=== PATIENT | male | born 1965 | race Hispanic/Latino ===

== ENCOUNTER 2018-03-25 08:46 | Inpatient (IN) | payer OTHER, SELFPAY ==
[~2018-03-25] VITALS: Ht 175.3 cm; Wt 89.4 kg
[2018-03-25] VITALS (7 sets, daily range): BP systolic 143–164; BP diastolic 89–113
[2018-03-25] MEDS ORDERED: TORADOL IV STA (08:58)
[2018-03-25] MEDS ORDERED: TORADOL ONE (09:00)
--- NOTE | 2018-03-25 09:03 | ER.PDOC ---
General Chief Complaint: Skin Rash/Abscess Stated Complaint: INSECT BITE/ pain swelling l elbow TRAVEL OUT OF US: No Time seen by MD: 09:00 Source: patient Exam Limitations: no limitations History of Present Illness Timing/Duration: 1 week Severity: moderate Modifying Factors: improves with immobilization, improves with movement, improves with rest Associated Symptoms: denies symptoms Allergies: Coded Allergies: No Known Allergies (Unverified , 03/25/18) Past Medical History Medical History: no pertinent history, hypertension, thyroid disease Surgical History: neck Social History Smoking: non-smoker Alcohol Use: occassionally Drug Use: none Reviewed Nursing Reviewed: Vital Signs, Abn. Noted Review of Systems All Other Systems: Reviewed and Negative Physical Exam General Appearance: No Apparent Distress EENT: eyes nml inspection Respiratory: chest non-tender CVS: reg rate & rhythm Gastrointestinal: Normal Bowel Sounds Extremities: Inflammation, Other (L ELBOW - POSTERIOR EDEME, ERYTHEMA, JOINT EFFUSION, ROM RESTRICTED) Skin: Other Lymphatic: No Adenopathy Incision and Drainage Incision and Drainage : Blade Size: 11 I & D Procedure: betadine prep, sterile drapes applied, sterile dressing applied, gauze wick placed, probe/break up loculation, irrigated cavity w/saline , culture/gram stain Results/Orders Results/Orders Laboratory Tests Test 03/25/18 09:09 White Blood Count 11.0 10^3/uL (4.5-11.0) Red Blood Count 4.17 10^6/uL (4.50-5.90) Hemoglobin 12.8 g/dL (13.9-16.3) Hematocrit 39.2 % (37.0-53.0) Mean Corpuscular Volume 94.0 fL (78-100) Mean Corpuscular Hemoglobin 30.7 pg (26-34) Mean Corpuscular Hemoglobin Concent 32.7 g/dL (33-37) Red Cell Distribution Width 13.6 % (11.5-14.5) Platelet Count 287 10^3/uL (150-400) Mean Platelet Volume 9.3 fL (7.8-11.0) Neutrophils (%) (Auto) 78.4 % (41.0-85.0) Lymphocytes (%) (Auto) 7.9 % (24.0-44.0) Monocytes (%) (Auto) 12.7 % (5.0-12.0) Neutrophils # (Auto) 8.6 10^3/uL (1.8-7.7) Lymphocytes # (Auto) 0.9 10^3/uL (1.0-4.8) Monocytes # (Auto) 1.4 10^3/uL (0.3-0.8) Absolute Immature Granulocyte (auto 0.03 10^3 u/L (0-2) Eosinophils % 0.5 % (0.0-5.0) Basophils % 0.2 % (0.0-0.2) Basophils # 0.0 10^3/uL (0.0-0.1) Erythrocyte Sedimentation Rate Pending Eosinophil Count 0.1 10^3/uL (0.0-0.2) Sodium Level 139 mmol/L (132-145) Potassium Level 3.5 mmol/L (3.6-5.2) Chloride Level 102.0 mmol/L (96-109) Carbon Dioxide Level 26.1 mmol/L (20.0-32) Anion Gap 14.4 Blood Urea Nitrogen 18 mg/dL (7-18) Creatinine 1.00 mg/dL (0.59-1.40) Estimated GFR () 95.7 (>/=60) BUN/Creatinine Ratio 18.0 Glucose Level 134 mg/dL (70-110) Uric Acid 5.1 mg/dL (3.5-7.2) Calcium Level 8.8 mg/dL (8.4-10.5) Total Bilirubin 0.4 mg/dL (0.2-1.0) Aspartate Amino Transf (AST/SGOT) 21 U/L (0-35) Alanine Aminotransferase (ALT/SGPT) 32 U/L (12-78) Alkaline Phosphatase 99 U/L (50-136) C-Reactive Protein 6.70 mg/dL (0.00-5.00) Total Protein 7.7 g/dL (6.4-8.2) Albumin 3.7 g/dL (3.4-5.0) Globulin 4.0 Percent Immature Gran (Cell Imm) 0.30 % (0.00-0.50) Administered Medications Medications (Trade) Dose Ordered Sig/Natalie Route PRN Reason Start Time Stop Time Status Last Admin Dose Admin Ketorolac Tromethamine (Toradol) 30 mg STAT STAT IV 03/25/18 08:58 03/25/18 08:59 DC 03/25/18 09:01 Vancomycin HCl 1.5 gm/Sodium Chloride 300 ml @ 175 mls/hr OT ONCE IV 03/25/18 10:00 03/25/18 11:42 UNV 03/25/18 09:59 Consult/PCP Time Consult/PCP Called: 11:11 Consult/PCP: dr michele Departure Time of Disposition: 11:33 Disposition: 09 ADMITTED INPATIENT Impression: Primary Impression: Cellulitis Additional Impression: Hidradenitis Condition: Improved Duration or Time Spent with Pa: 2 hrs MYLES VOGT MD Mar 25, 2018 09:03
[2018-03-25 09:29] LABS: BASOPHIL % 0.2 % (0.0-0.2); EOSINOPHIL # 0.1 10^3/uL (0.0-0.2); EOSINOPHIL % 0.5 % (0.0-5.0); HEMOGLOBIN 12.8 g/dL (13.9-16.3); LYMPHOCYTES # 0.9 10^3/uL (1.0-4.8); LYMPHOCYTES % 7.9 % (24.0-44.0); MEAN CELL HGB 30.7 pg (26-34); MEAN CELL HGB CONCENTRATION 32.7 g/dL (33-37); MEAN PLATELET VOLUME 9.3 fL (7.8-11.0); MONOCYTES # 1.4 10^3/uL (0.3-0.8); MONOCYTES % 12.7 % (5.0-12.0); NEUTROPHIL # 8.6 10^3/uL (1.8-7.7); NEUTROPHILS % 78.4 % (41.0-85.0); RED CELL DISTRIBUTION WIDTH 13.6 % (11.5-14.5)
--- NOTE | 2018-03-25 09:33 | DIREP ---
PROCEDURE:XRAY ELBOW 2VWS-LT COMPARISON:None. INDICATIONS:bursitis l elbow FINDINGS: BONES:No fracture is seen. There is no radiographic evidence of osteomyelitis. JOINTS:Normal. No displaced anterior or posterior fat pads. SOFT TISSUES:Diffuse soft tissue swelling of the left elbow is noted as well as significant swelling posterior to the olecranon consistent with history of bursitis. No definite joint effusion is seen. OTHER:Normal. CONCLUSION: 1. Findings consistent with history of bursitis as well as diffuse soft tissue swelling of the left elbow. 2. No fracture or other osseous abnormality is seen. No definite joint effusion is noted. Dictated by: Junaid Avalos M.D. on 03/25/2018 at 09:30 AM
[2018-03-25] MEDS ORDERED: LIDOCAINE 1% VIAL ONE (09:39)
[2018-03-25 09:47] LABS: CALCIUM 8.8 mg/dL (8.4-10.5); CARBON DIOXIDE 26.1 mmol/L (20.0-32)
[2018-03-25] MEDS ORDERED: NS 250ML 250 ML IV ONE ×2 (09:58→21:08)
[2018-03-25] MEDS ORDERED: VANCOMYCIN HCL 2 GM ONE (09:59)
[2018-03-25] MEDS ORDERED: VANCOMYCIN HCL 1.5 GM in NS 250ML 300 ML IV ONE (10:00)
--- NOTE | 2018-03-25 10:45 | NUR ---
DR HARSHIL VOGT ON PHONE WITH DR CHUA
--- NOTE | 2018-03-25 11:30 | NUR ---
ARRIVAL PATIENT ARRIVED ON MED-SURG UNIT AT THIS TIME TO ROOM 313. RECEIVED REPORT, ASSUMED CARE FOR PATIENT AT THIS TIME.
--- NOTE | 2018-03-25 12:24 | PCM.HP ---
History of Present Illness History of Present Illness 52-year-old male with history of hypertension, hypothyroidism, hyperlipidemia but not on any medications, and a poor historian too; who presented to the ER today with a two-week history of left arm swelling and pain. He was found to have an abscess in his left forearm posteriorly. The patient had an incision and drainage done in the ER and was transferred to the hospitalist service for IV antibiotics. He received 1 dose of vancomycin in the ER. He does not remember how it all started. He said he went to bed about 2 weeks ago, and woke up with this small pimple on his left arm that seems to be a spider bite. Over the course of 2 weeks, it has progressed to an enlarged abscess with redness. He said he used to wrap it with an Oumar wrap but he was not getting better. Patient is a poor historian and keeps referring to the fact that he was in long-term for 10 years until recently. Allergies: No known drug allergies Past medical history: Hypertension Hypothyroidism Hyperlipidemia Patient used to take medications for all these ailments but said he was lost in transit after he came out of long-term. Past surgical history: Cholecystectomy Benign mass removal from the right ear FSHx: Occas alcohol Denies smoking Denies use of any street drugs. Lives in [facility] with a ministry for those that need help after long-term. Travel Hx EBOLA RISK:Travel to/contact w: No Is pt experiencing any Ebola s: No Review of Systems Constitutional: No: Fever, Chills, Sweats, Weakness, Malaise, Other Eyes: No: Pain, Vision change, Conjunctivae inflammation, Eyelid inflammation, Other, Redness ENT: No: Ear pain, Ear discharge, Nose pain, Nose discharge, Nose congestion, Mouth pain, Mouth swelling, Throat pain, Throat swelling, Other Respiratory: No: Cough, Dry, Shortness of breath, SOB with excertion, Wheezing , Hemoptysis, Pleuritic Pain, Sputum, Wheezing, Other Cardiovascular: No: Chest Pain, Palpitations, Orthopnea, Paroxysmal Noc. Dyspnea, Edema, Lt Headedness, Other Gastrointestinal: No: Nausea, Vomiting, Abdominal Pain, Diarrhea, Constipation , Melena, Hematochezia, Other Genitourinary: No Dysuria, No Frequency, No Incontinence, No Hematuria, No Retention, No Other Musculoskeletal: arm pain; No: other, neck pain, shoulder pain, back pain, hand pain, leg pain, foot pain Skin: No: Rash, Lesions, Jaundice, Bruising, Other Neurological: No: Weakness, Numbness, Incoordination, Change in speech, Confusion, Seizures, Other Allergies: Coded Allergies: No Known Allergies (Unverified , 03/25/18) Exam Vital Signs Vital Signs Date Time Temp Pulse Resp B/P (MAP) Pulse Ox O2 Delivery O2 Flow Rate FiO2 03/25/18 11:45 97.7 89 18 143/102 (116) 99 Room Air 97.7 ========= Laboratory Tests Test 03/25/18 09:09 White Blood Count 11.0 10^3/uL Red Blood Count 4.17 10^6/uL Hemoglobin 12.8 g/dL Hematocrit 39.2 % Mean Corpuscular Volume 94.0 fL Mean Corpuscular Hemoglobin 30.7 pg Mean Corpuscular Hemoglobin Concent 32.7 g/dL Red Cell Distribution Width 13.6 % Platelet Count 287 10^3/uL Mean Platelet Volume 9.3 fL Neutrophils (%) (Auto) 78.4 % Lymphocytes (%) (Auto) 7.9 % Monocytes (%) (Auto) 12.7 % Neutrophils # (Auto) 8.6 10^3/uL Lymphocytes # (Auto) 0.9 10^3/uL Monocytes # (Auto) 1.4 10^3/uL Absolute Immature Granulocyte (auto 0.03 10^3 u/L Eosinophils % 0.5 % Basophils % 0.2 % Basophils # 0.0 10^3/uL Erythrocyte Sedimentation Rate 32 mm/hr Eosinophil Count 0.1 10^3/uL Sodium Level 139 mmol/L Potassium Level 3.5 mmol/L Chloride Level 102.0 mmol/L Carbon Dioxide Level 26.1 mmol/L Anion Gap 14.4 Blood Urea Nitrogen 18 mg/dL Creatinine 1.00 mg/dL Estimated GFR () 95.7 BUN/Creatinine Ratio 18.0 Glucose Level 134 mg/dL Uric Acid 5.1 mg/dL Calcium Level 8.8 mg/dL Total Bilirubin 0.4 mg/dL Aspartate Amino Transf (AST/SGOT) 21 U/L Alanine Aminotransferase (ALT/SGPT) 32 U/L Alkaline Phosphatase 99 U/L C-Reactive Protein 6.70 mg/dL Total Protein 7.7 g/dL Albumin 3.7 g/dL Globulin 4.0 Percent Immature Gran (Cell Imm) 0.30 % Current Medications Medications (Trade) Dose Ordered Sig/Natalie Route PRN Reason Start Time Stop Time Status Last Admin Dose Admin Ketorolac Tromethamine (Toradol) 30 mg STAT STAT IV 03/25/18 08:58 03/25/18 08:59 DC 03/25/18 09:01 Ketorolac Tromethamine (Toradol) 30 mg STK-MED ONCE .ROUTE 03/25/18 09:00 03/25/18 09:02 DC Vancomycin HCl 1.5 gm/Sodium Chloride 300 ml @ 175 mls/hr OT ONCE IV 03/25/18 10:00 03/25/18 11:42 DC 03/25/18 09:59 Lidocaine HCl (Lidocaine 1% Vial) 200 mg STK-MED ONCE .ROUTE 03/25/18 09:39 03/25/18 09:41 DC Sodium Chloride 250 ml @ ud STK-MED ONCE IV 03/25/18 09:58 03/25/18 10:00 DC Vancomycin HCl 2 ml @ ud STK-MED ONCE .ROUTE 03/25/18 09:59 03/25/18 10:01 DC Vancomycin HCl 1.5 gm/Sodium Chloride 300 ml @ 175 mls/hr Q12HR IV 03/25/18 21:00 04/24/18 20:59 Ketorolac Tromethamine (Toradol) 15 mg Q6H PRN IV PAIN 03/25/18 11:00 03/30/18 10:59 Acetaminophen (Tylenol) 1,000 mg Q6H PRN PO PAIN MILD 03/25/18 12:30 04/24/18 12:29 UNV Pantoprazole Sodium (Protonix) 40 mg DAILY PO 03/26/18 09:00 04/25/18 08:59 UNV Acetaminophen/ Hydrocodone Bitart ([place] 5mg) 1 ea Q4H PRN PO PAIN 03/25/18 12:30 04/24/18 12:29 UNV Morphine Sulfate (Morphine Sulfate) 2 mg Q4HR IV 03/25/18 16:00 04/24/18 15:59 UNV General Appearance: Alert, Oriented X3 HEENT: Atraumatic, PERRLA Respiratory: Clear to auscultation, Normal air movement Cardiovascular: Regular rate, Normal S1, Normal S2 Abdominal: Normal bowel sounds, Soft, No tenderness Extremities: No clubbing, No cyanosis, No edema, Other (Swelling and redness over Left Arm) Skin: No rash, No breakdown, No lesions Psych/Mental Status: Mental status NL, Mood NL Assessment/Plan Assessment/Plan Plan ASSESSMENT: Left forearm abscess History of hypertension History of hypothyroidism History of hyperlipidemia PLAN: Admit patient to general medical floor. Continue patient on vancomycin. Pharmacy to dose Gentle IV hydration Specimen sent for cultures from the abscess. Send blood cultures if patient runs a fever. Tylenol alternating with Mophine. Monitor blood pressure because of history of hypertension. Get a TSH tomorrow. Get a lipid panel tomorrow Send a Ur drug screen Patient may benefit from GI prophylaxis. Patient is ambulatory: No DVT prophylaxis. LUIS E CHUA DO Mar 25, 2018 12:24
[2018-03-25] MEDS ORDERED: MORPHINE SULFATE IV SCH (16:00)
--- NOTE | 2018-03-25 17:00 | NUR ---
PATIENT ACCUSED CHARGE NURSE AT THIS TIME OF "STEALING HIS [facility]ENS." CHARGE NURSE ASSURED HIM THAT SHE DID NOT STEAL THEM, AND WASN'T SURE WHERE THEY WOULD BE. PATIENT VERBALIZED THAT "SOMEONE HAD TO HAVE STOLEN THEM." PATIENT VERY AGITATED AT THIS TIME.
--- NOTE | 2018-03-25 17:05 | NUR ---
PATIENT TOLD CHARGE NURSE AT THIS TIME THAT "HE WAS GOING TO REPORT HER TO HIS UNCLE WHO IS THE INSTRUCTIONAL COORDINATOR FOR STEALING HIS [facility] PENS."
--- NOTE | 2018-03-25 17:28 | NUR ---
PATIENT CALLING EVENT LIGHTING SPECIALIST AT THIS TIME ASKING IF THEY HAVE SEEN PEOPLE DIGGING IN HIS WALLET.
--- NOTE | 2018-03-25 17:30 | NUR ---
PATIENT ASKING PRESSER HAND AT THIS TIME "WHO ARE SCOTTY AND VIKTORIA? WHAT ARE THEIR TITLES?" SHE REPLIED THAT "THEY WERE THE CHARGE NURSE AND SLIP LASTER ON THE FLOOR, AND ASKED IF HE WOULD LIKE TO SPEAK WITH THEM." HE STATED THAT "HE DIDN'T WANNA TALK WITH THEM, BUT SOMEONE DOES."
--- NOTE | 2018-03-25 17:42 | NUR ---
MAKING ROUNDS AT THIS TIME. WHEN THIS NURSE ASKED IF HE NEEDED ANYTHING, THE PATIENT HAD NO RESPONSE. THIS NURSE ASKED AGAIN TO MAKE SURE THAT THE PATIENT COULD HEAR THE QUESTION. THE PATIENT LOOKED AT THIS NURSE AND CONTINUED TO WATCH TV WITH NO RESPONSE. CALL LIGHT IN REACH, BED IS LOW AND LOCKED. WILL CONTINUE TO MONITOR PATIENT.
[2018-03-25] MEDS ORDERED: MORPHINE SULFATE IV PRN (18:00)
--- NOTE | 2018-03-25 18:44 | NUR ---
REPORT REPORT GIVEN TO RAMY BATES. RELINQUISHED CARE FOR PATIENT AT THIS TIME.
--- NOTE | 2018-03-25 18:52 | NUR ---
report received report from offgoing shift
[2018-03-25] MEDS: TYLENOL PO PRN (19:01)
--- NOTE | 2018-03-25 19:12 | NUR ---
Called Physician pt was irritated, belligerent, and demanding. He wants to talk to the physician and he said nurse should do whatever he is asking since he paid nurses from his " fucking " on pocket. He wants to talk to the physician because he said the swelling on his arm becomes bigger and extends from his lower forearm to his upper arm. Nurse called doctor and told him evrything the pt said. Physician said he is hungry and he will come up to do his notes and he might be able to see the pt.
[2018-03-25] MEDS: TORADOL IV PRN (20:00)
--- NOTE | 2018-03-25 20:00 | NUR ---
physician talked to pt physician talked with the pt and the physician called nurse attention to the room of the pt. Physician informed nurse that pt. will be given his pain meds on demand, and will continue with the antibiotic. He added that a doctor may be consulted for the affected arm for a possible surgery. Should the pt make things hard on the nurse, the physician made it clear to the nurse in the presence of the pt that the latter can leave the hospital anytime.
[2018-03-25] MEDS ORDERED: VANCOMYCIN HCL 1.5 GM in NS 250ML 300 ML IV SCH (21:00)
[2018-03-25] MEDS ORDERED: VANCOMYCIN HCL 1 GM ONE (21:07)
[2018-03-25] MEDS ORDERED: NS 500ML 500 ML IV ONE (21:09)
[2018-03-25] MEDS: VANCOMYCIN HCL 1 GM in NS 250ML 250 ML IV SCH (21:11)
[2018-03-26 01:41] VITALS: BP 147/92
[2018-03-26] MEDS: TYLENOL PO PRN ×2 (04:51→18:33)
[2018-03-26 04:53] LABS: BASOPHIL % 0.2 % (0.0-0.2); EOSINOPHIL # 0.1 10^3/uL (0.0-0.2); EOSINOPHIL % 0.8 % (0.0-5.0); HEMOGLOBIN 12.4 g/dL (13.9-16.3); LYMPHOCYTES # 1.1 10^3/uL (1.0-4.8); LYMPHOCYTES % 10.2 % (24.0-44.0); MEAN CELL HGB 30.3 pg (26-34); MEAN CORP VOLUME 94.6 fL (78-100); MEAN PLATELET VOLUME 9.2 fL (7.8-11.0); MONOCYTES # 1.2 10^3/uL (0.3-0.8); MONOCYTES % 11.3 % (5.0-12.0); NEUTROPHIL # 8.2 10^3/uL (1.8-7.7); NEUTROPHILS % 77.4 % (41.0-85.0); RED CELL DISTRIBUTION WIDTH 13.8 % (11.5-14.5); WHITE BLOOD CELL 10.6 10^3/uL (4.5-11.0)
[2018-03-26 05:00] VITALS: BP 146/93
--- NOTE | 2018-03-26 05:09 | NUR ---
picture taken nurse took picture of the affected arm and cleaned it with a wound cleanser. Pt. was pleasant and conversing well with the nurse.
[2018-03-26 05:20] LABS: CALCIUM 8.5 mg/dL (8.4-10.5); CARBON DIOXIDE 24.9 mmol/L (20.0-32)
--- NOTE | 2018-03-26 06:56 | NUR ---
report report given to o/c shift
[2018-03-26] MEDS: NORCO 5MG PO PRN (07:34)
[2018-03-26 08:13] VITALS: BP 133/90
--- NOTE | 2018-03-26 08:52 | PRM.PN ---
Subjective Subjective Date: Mar 26, 2018 Time: 08:48 Subjective Patient is seen in the starr laying down quietly in bed. He is complaining that his arm is getting more and more swollen. He was seen by general surgery this morning, and a CT scan is ordered. I do not see any cultures yet from this wound. Objective Vitals and I/O Vital Sign - Last 24 Hours 03/25/18 03/25/18 03/25/18 03/25/18 08:51 08:51 08:55 09:46 Temp 98.6 98.6 98.6 98.6 98.6 98.6 Pulse 103 103 103 96 Resp 18 18 18 B/P (MAP) 154/113 (127) 145/89 (107) Pulse Ox 98 98 97 O2 Delivery Room Air Room Air Room Air 03/25/18 03/25/18 03/25/18 03/25/18 10:47 11:10 11:45 16:43 Temp 97.7 99.9 97.7 99.9 Pulse 85 89 89 89 Resp 18 18 B/P (MAP) 152/94 (113) 164/101 (122) 143/102 (116) 161/99 (119) Pulse Ox 100 100 99 97 O2 Delivery Room Air Room Air Room Air Room Air 03/25/18 03/25/18 03/26/18 03/26/18 17:58 21:05 00:16 00:34 Temp 99.1 99.1 Pulse 107 Resp 20 B/P (MAP) 157/99 (118) Pulse Ox 97 O2 Delivery Room Air Room Air Room Air Room Air 03/26/18 03/26/18 03/26/18 01:41 05:00 08:13 Temp 98.8 99.2 99.0 98.8 99.2 99.0 Pulse 90 94 85 Resp 20 18 18 B/P (MAP) 147/92 (110) 146/93 (110) 133/90 (104) Pulse Ox 97 95 95 O2 Delivery Room Air Room Air Room Air Intake and Output 03/25/18 03/25/18 03/26/18 15:00 23:00 07:00 Intake Total 250 ml Output Total 400 ml 320 ml Balance -400 ml -70 ml Laboratory Tests Test 03/25/18 09:09 03/25/18 16:32 03/26/18 04:29 White Blood Count 11.0 10^3/uL 10.6 10^3/uL Red Blood Count 4.17 10^6/uL 4.09 10^6/uL Hemoglobin 12.8 g/dL 12.4 g/dL Hematocrit 39.2 % 38.7 % Mean Corpuscular Volume 94.0 fL 94.6 fL Mean Corpuscular Hemoglobin 30.7 pg 30.3 pg Mean Corpuscular Hemoglobin Concent 32.7 g/dL 32.0 g/dL Red Cell Distribution Width 13.6 % 13.8 % Platelet Count 287 10^3/uL 292 10^3/uL Mean Platelet Volume 9.3 fL 9.2 fL Neutrophils (%) (Auto) 78.4 % 77.4 % Lymphocytes (%) (Auto) 7.9 % 10.2 % Monocytes (%) (Auto) 12.7 % 11.3 % Neutrophils # (Auto) 8.6 10^3/uL 8.2 10^3/uL Lymphocytes # (Auto) 0.9 10^3/uL 1.1 10^3/uL Monocytes # (Auto) 1.4 10^3/uL 1.2 10^3/uL Absolute Immature Granulocyte (auto 0.03 10^3 u/L 0.01 10^3 u/L Eosinophils % 0.5 % 0.8 % Basophils % 0.2 % 0.2 % Basophils # 0.0 10^3/uL 0.0 10^3/uL Erythrocyte Sedimentation Rate 32 mm/hr Eosinophil Count 0.1 10^3/uL 0.1 10^3/uL Sodium Level 139 mmol/L 141 mmol/L Potassium Level 3.5 mmol/L 3.7 mmol/L Chloride Level 102.0 mmol/L 107.0 mmol/L Carbon Dioxide Level 26.1 mmol/L 24.9 mmol/L Anion Gap 14.4 12.8 Blood Urea Nitrogen 18 mg/dL 17 mg/dL Creatinine 1.00 mg/dL 0.95 mg/dL Estimated GFR () 95.7 101.5 BUN/Creatinine Ratio 18.0 17.0 Glucose Level 134 mg/dL 104 mg/dL Uric Acid 5.1 mg/dL Calcium Level 8.8 mg/dL 8.5 mg/dL Total Bilirubin 0.4 mg/dL 0.7 mg/dL Aspartate Amino Transf (AST/SGOT) 21 U/L 19 U/L Alanine Aminotransferase (ALT/SGPT) 32 U/L 28 U/L Alkaline Phosphatase 99 U/L 74 U/L C-Reactive Protein 6.70 mg/dL Total Protein 7.7 g/dL 7.0 g/dL Albumin 3.7 g/dL 3.1 g/dL Globulin 4.0 3.9 Percent Immature Gran (Cell Imm) 0.30 % 0.10 % Urine Opiates, Qualitative NEGATIVE ng/mL Urine Methadone, Qualitative NEGATIVE ng/mL Urine Amphetamine Qualitative NEGATIVE ng/mL Urine Barbiturates, Qualitative NEGATIVE ng/mL Urine Phencyclidine Screen NEGATIVE ng/mL Urine MDMA (Ecstasy), Qualitative NEGATIVE ng/mL Urine Benzodiazepines Screen NEGATIVE ng/mL Urine Cocaine Qualitative NEGATIVE ng/mL Ur Tetrahydrocannabinol (THC) Scrn NEGATIVE ng/mL Triglycerides Level 46 mg/dL Cholesterol Level 158 mg/dL LDL Cholesterol, Calculated 74.8 VLDL Cholesterol 9.2 HDL Cholesterol 74 mg/dL Cholesterol Ratio (LDL/HDL) [id number] Thyroid Stimulating Hormone (TSH) 1.291 mIU/mL Current Medications Medications (Trade) Dose Ordered Sig/Natalie Route PRN Reason Start Time Stop Time Status Last Admin Dose Admin Ketorolac Tromethamine (Toradol) 30 mg STAT STAT IV 03/25/18 08:58 03/25/18 08:59 DC 03/25/18 09:01 Ketorolac Tromethamine (Toradol) 30 mg STK-MED ONCE .ROUTE 03/25/18 09:00 03/25/18 09:02 DC Vancomycin HCl 1.5 gm/Sodium Chloride 300 ml @ 175 mls/hr OT ONCE IV 03/25/18 10:00 03/25/18 11:42 DC 03/25/18 09:59 Lidocaine HCl (Lidocaine 1% Vial) 200 mg STK-MED ONCE .ROUTE 03/25/18 09:39 03/25/18 09:41 DC Sodium Chloride 250 ml @ ud STK-MED ONCE IV 03/25/18 09:58 03/25/18 10:00 DC Vancomycin HCl 2 ml @ ud STK-MED ONCE .ROUTE 03/25/18 09:59 03/25/18 10:01 DC Vancomycin HCl 1.5 gm/Sodium Chloride 300 ml @ 175 mls/hr Q12HR IV 03/25/18 21:00 03/25/18 21:00 DC Ketorolac Tromethamine (Toradol) 15 mg Q6H PRN IV PAIN 03/25/18 11:00 03/30/18 10:59 03/25/18 20:00 Acetaminophen (Tylenol) 1,000 mg Q6H PRN PO PAIN MILD 03/25/18 12:30 04/24/18 12:29 03/26/18 04:51 Pantoprazole Sodium (Protonix) 40 mg DAILY PO 03/26/18 09:00 04/25/18 08:59 Acetaminophen/ Hydrocodone Bitart ([place] 5mg) 1 ea Q4H PRN PO PAIN 03/25/18 12:30 04/24/18 12:29 03/26/18 07:34 Morphine Sulfate (Morphine Sulfate) 2 mg Q4HR IV 03/25/18 16:00 03/25/18 17:51 DC Vancomycin HCl 1 gm/Sodium Chloride 250 ml @ 175 mls/hr BID IV 03/25/18 21:00 04/24/18 20:59 03/25/18 21:11 Morphine Sulfate (Morphine Sulfate) 2 mg Q4H PRN IV PAIN 03/25/18 18:00 04/24/18 17:59 General: Alert, Oriented X3 HEENT: Atraumatic, PERRLA Neck: Supple, No thyromegaly Lungs: Clear to auscultation, Normal air movement Heart: Regular rate, Normal S1, Normal S2 Abdomen: Normal bowel sounds, No tenderness Extremities: No clubbing, No cyanosis Skin: No rashes, No breakdown Neuro: Normal speech, Cranial nerves 3-12 NL All Results(Lab/Rad) PATIENT NAME: ALBERTO BELL#: [id number] : 1965 LOCATION: ER ROOM#: BED: SEX: M AGE: 52 SERVICE DATE: ORDERING PHYSICIAN: MYLES VOGT MD RAD#: [id number] ACCESSION NUMBER(s): [id number] PROCEDURE: XR ELBOW LT EXAM DATE: 03/25/18 0858 cc: SUMA AVALOS MD; MYLES VOGT MD / CC: SUMA AVALOS MD; MYLES VOGT MD PROCEDURE:XRAY ELBOW 2VWS-LT COMPARISON:None. INDICATIONS:bursitis l elbow FINDINGS: BONES:No fracture is seen. There is no radiographic evidence of osteomyelitis. JOINTS:Normal. No displaced anterior or posterior fat pads. SOFT TISSUES:Diffuse soft tissue swelling of the left elbow is noted as well as significant swelling posterior to the olecranon consistent with history of bursitis. No definite joint effusion is seen. OTHER:Normal. CONCLUSION: 1. Findings consistent with history of bursitis as well as diffuse soft tissue swelling of the left elbow. 2. No fracture or other osseous abnormality is seen. No definite joint effusion is noted. Dictated by: Suma Avalos M.D. on 03/25/2018 at 09:30 AM Assessment/Plan Assessment/Plan Plan ASSESSMENT: Left forearm abscess History of hypertension History of hypothyroidism History of hyperlipidemia PLAN: Cont vancomycin. Pharmacy to dose Gentle IV hydration Send blood cultures if patient runs a fever. Tylenol alternating with Mophine. Blood pressures monitored appear within normal limits TSH is 1.291 Total cholesterol is 158, LDL 74, HDL 74, and triglycerides 46. Ur drug screen wnl GI prophylaxis. Patient is not ambulatory: Start DVT prophylaxis. LUIS E CHUA DO Mar 26, 2018 08:52
[2018-03-26] MEDS: VANCOMYCIN HCL 1 GM in NS 250ML 250 ML IV SCH ×2 (09:22→21:16)
[2018-03-26] MEDS: PROTONIX PO SCH (09:22)
--- NOTE | 2018-03-26 09:58 | DIREP ---
PROCEDURE:CT UPPER EXTREMITY-LT W/CONTRAST COMPARISON:[facility], CR, XRAY ELBOW 2VWS-LT, 03/25/2018, 08:33 AM. INDICATIONS:Cellulitis lt arm, swelling, redness, warmth to extremity TECHNIQUE:After obtaining the patient's consent, multi-planar CT images of the left elbow were created with non-ionic intravenous contrast. Sagittal and coronal reconstructions were obtained. The study was reviewed on soft tissue and bone windows. FINDINGS: BONES:The visualized portions of the left humerus, the proximal left radius and the ulna show no fracture or cortical destruction. JOINTS:No joint effusion or loose bodies are seen. SOFT TISSUES:Extensive infiltration of the subcutaneous fat involving the distal left humerus and the proximal left radius and the ulna consistent with extensive cellulitis. No focal fluid collection is seen to suggest an abscess. No compartment syndrome is identified. OTHER:Negative. CONCLUSION:Extensive cellulitis of the subcutaneous fat of the distal left humerus and the proximal left radius and the ulna. No fracture or cortical destruction is seen. No evidence for acute osteomyelitis. No joint effusion within the left elbow. Dictated by: Rocco Weathers MD on 03/26/2018 at 09:54 AM
--- NOTE | 2018-03-26 10:15 | NUR ---
DISCHARGE PLAN CM VISITED WITH PATIENT REGARDING DISCHARGE PLAN AND NEEDS. PATIENT LIVES IN [place] AT A [facility]. 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 HE IS VERY ACTIVE AND INDEPENDENT AND DENIES NEED FOR ANY DME. PATIENT IS WORKING WITH BUSINESS OFFICE TO SEE IF HE QUALIFIES FOR [facility]. APPOINTMENT HAS ALREADY BEEN SET UP FOR MARCH 29. DISCHARGE GOAL IS TO DISCHARGE BACK TO THE [facility] IN [place] AND CONTINUE WITH ROUTINE SELF CARE. CM DEPT WILL CONTINUE TO MONITOR DISCHARGE NEEDS.
[2018-03-26] MEDS ORDERED: LOVENOX SQ ONE (10:47)
[2018-03-26] MEDS: LOVENOX SQ SCH (10:50)
[2018-03-26 13:15] VITALS: BP 138/88
--- NOTE | 2018-03-26 14:00 | NUR ---
WOUND CARE DISCHARGE PATIENT AGREED TO OUTPT WOUND CARE THROUGH [facility], MARIA EUGENIA TAMEZ NOTFIED AND APPT. MADE FOR Thursday AT 0800.
[2018-03-26] MEDS: MAXIPIME 1 GM in NS 100ML 100 ML IV SCH ×2 (14:55→23:31)
[2018-03-26 17:15] VITALS: BP 157/90
[2018-03-26] MEDS: TORADOL IV PRN (17:49)
--- NOTE | 2018-03-26 18:36 | CNH ---
DATE OF CONSULTATION: CHIEF COMPLAINT: Cellulitis of the left arm. HISTORY OF PRESENT ILLNESS: This is a 52-year-old male who apparently has had some swelling in his arm for the last 3 weeks per his report. It has been increasing slightly and becoming more tender. He was able to work through the day. He presented to the hospital, subsequently admitted to [facility]-surg floor to the service of the hospitalist. Apparently, he had an incision and drainage performed in the ER for abscess in the left arm. He denies any history or injury to the left forearm. He denies any insect bite or trauma that was work related or otherwise. He was generally cooperative with H and P and seemed very pleasant. PAST MEDICAL HISTORY: Per patient's discussion and chart includes hypertension, hypothyroid, hyperlipidemia. PAST SURGICAL HISTORY: Includes cholecystectomy and removal of two separate benign tumors and the lymph nodes per his report. ALLERGIES: No known drug allergies. HOME MEDICATIONS: He denies. SOCIAL HISTORY: Positive for smokeless tobacco, occasional alcohol. He denies illicit drug use. He does report that he was incarcerated for some period of time. FAMILY HISTORY: Essentially unknown. He is not certain of his biological mother's and father's ages or conditions. REVIEW OF SYSTEMS: CONSTITUTIONAL: No reported fever, chills or weakness. CARDIOVASCULAR: No chest pain or trouble breathing. PULMONARY: No dyspnea or cough. ABDOMEN: No nausea, vomiting, abdominal pain. MUSCULOSKELETAL: He has swelling and tenderness of left arm that appears to be related to infectious process. PHYSICAL EXAMINATION: GENERAL: Alert and oriented 52-year-old male, in no acute distress. VITAL SIGNS: Last temperature in the chart is 97.9, pulse 86, respiration 18, blood pressure 138/88. HEENT: Normocephalic, atraumatic. [place] mucous membranes. NECK: Supple and soft. Trachea is midline. No JVD or thyromegaly. HEART: Has regular rate and rhythm. LUNGS: Clear to auscultation anteriorly bilaterally. ABDOMEN: Bowel sounds are positive and soft. EXTREMITIES: Show positive radial pulses bilaterally. Positive dorsal pedal pulse bilaterally. Left upper extremity has significant erythema and swelling that appears to extend from the hand proximally with the greatest area involved being around the elbow and distally, further proximally to the mid upper arm. He has some tenderness, but no deep tenderness on exam and no signs of purulent drainage when packing is removed. NEUROLOGIC: He has no acute findings. Cranial nerves 2 through 12 grossly intact. LABORATORY STUDIES: His white count on admission was 11.0, repeat is 10.6, last hemoglobin was 12.4, platelet count was 292. Chemistry shows BUN of 17, creatinine 0.95 today. His albumin is decreased to 3.1. IMAGING STUDIES: He has had a CT scan of the arm that shows extensive cellulitis involving the skin, soft tissue, but no bone or joint involvement. No signs of abscess. SURGICAL ASSESSMENT: 1. Left upper extremity cellulitis with apparent cultures pending. 2. Open wound secondary to incision and drainage. 3. History of tobacco use. PLAN: 1. The patient is seen and examined. Chart was reviewed. 2. I have reviewed the CT scan and there are no signs of abscess. 3. Local wound care by the nursing service and antibiotic management per the primary service. Alirio Villarreal DO DR: MARK/jeanie JOB# [id number] CC: Kei Lauren DO
[2018-03-26 19:29] VITALS: BP 147/87
[2018-03-27 00:28] VITALS: BP 148/96
[2018-03-27 04:59] VITALS: BP 150/99
[2018-03-27] MEDS: TORADOL IV PRN ×2 (05:02→17:17)
[2018-03-27 05:03] LABS: BASOPHIL % 0.3 % (0.0-0.2); EOSINOPHIL # 0.1 10^3/uL (0.0-0.2); EOSINOPHIL % 1.6 % (0.0-5.0); HEMOGLOBIN 11.5 g/dL (13.9-16.3); LYMPHOCYTES # 1.1 10^3/uL (1.0-4.8); LYMPHOCYTES % 13.9 % (24.0-44.0); MEAN CELL HGB 30.3 pg (26-34); MEAN CELL HGB CONCENTRATION 32.2 g/dL (33-37); MEAN CORP VOLUME 93.9 fL (78-100); MEAN PLATELET VOLUME 9.1 fL (7.8-11.0); MONOCYTES # 0.9 10^3/uL (0.3-0.8); MONOCYTES % 11.7 % (5.0-12.0); NEUTROPHIL # 5.8 10^3/uL (1.8-7.7); NEUTROPHILS % 72.5 % (41.0-85.0); RED CELL DISTRIBUTION WIDTH 13.7 % (11.5-14.5)
[2018-03-27] MEDS ORDERED: LEVOTHYROXINE SODIUM ONE (05:28)
[2018-03-27] MEDS: LEVOTHYROXINE SODIUM PO SCH (05:29)
[2018-03-27 05:34] LABS: CALCIUM 8.5 mg/dL (8.4-10.5); CARBON DIOXIDE 23.4 mmol/L (20.0-32)
--- NOTE | 2018-03-27 06:40 | NUR ---
REPORT GIVEN TO SCOTTY JOSE. CARE RELINQUISHED.
--- NOTE | 2018-03-27 06:45 | NUR ---
REPORT RECEIVED REPORT, ASSUMED CARE FOR PATIENT AT THIS TIME.
[2018-03-27] MEDS: MAXIPIME 1 GM in NS 100ML 100 ML IV SCH ×3 (06:49→23:44)
--- NOTE | 2018-03-27 07:58 | NUR ---
ADJUSTED TELEMETRY AT THIS TIME.
[2018-03-27] MEDS: PROTONIX PO SCH (09:44)
[2018-03-27] MEDS: LOVENOX SQ SCH (09:44)
[2018-03-27] MEDS: ZESTRIL PO SCH (09:44)
[2018-03-27] MEDS: VANCOMYCIN HCL 1 GM in NS 250ML 250 ML IV SCH ×2 (09:44→21:08)
--- NOTE | 2018-03-27 09:44 | PRM.PN ---
Subjective Subjective Date: Mar 27, 2018 Time: 09:36 Subjective Patient is seen laying down quietly in bed this morning watching TV. He said swelling in his left upper extremity has increased a tiny bits. He denies fever or chills. He is eating and drinking well. He is getting up to go to the bathroom. He continues to be on vancomycin and cefepime. Objective Vitals and I/O Vital Sign - Last 24 Hours 03/26/18 03/26/18 03/26/18 03/26/18 13:15 17:15 19:20 19:29 Temp 97.9 99.9 98.7 97.9 99.9 98.7 Pulse 86 98 100 Resp 18 17 16 B/P (MAP) 138/88 (105) 157/90 (112) 147/87 (107) Pulse Ox 96 100 96 O2 Delivery Room Air Room Air Room Air Room Air 03/27/18 03/27/18 00:28 04:59 Temp 98.9 99.2 98.9 99.2 Pulse 83 92 Resp 18 16 B/P (MAP) 148/96 (113) 150/99 (116) Pulse Ox 95 90 O2 Delivery Room Air Room Air Intake and Output 03/26/18 03/26/18 03/27/18 15:00 23:00 07:00 Intake Total 350 ml Output Total 300 ml Balance -300 ml 350 ml Laboratory Tests Test 03/27/18 04:23 03/27/18 08:30 White Blood Count 8.0 10^3/uL Red Blood Count 3.80 10^6/uL Hemoglobin 11.5 g/dL Hematocrit 35.7 % Mean Corpuscular Volume 93.9 fL Mean Corpuscular Hemoglobin 30.3 pg Mean Corpuscular Hemoglobin Concent 32.2 g/dL Red Cell Distribution Width 13.7 % Platelet Count 290 10^3/uL Mean Platelet Volume 9.1 fL Neutrophils (%) (Auto) 72.5 % Lymphocytes (%) (Auto) 13.9 % Monocytes (%) (Auto) 11.7 % Neutrophils # (Auto) 5.8 10^3/uL Lymphocytes # (Auto) 1.1 10^3/uL Monocytes # (Auto) 0.9 10^3/uL Absolute Immature Granulocyte (auto 0 10^3 u/L Eosinophils % 1.6 % Basophils % 0.3 % Basophils # 0.0 10^3/uL Eosinophil Count 0.1 10^3/uL Sodium Level 141 mmol/L Potassium Level 3.6 mmol/L Chloride Level 107.0 mmol/L Carbon Dioxide Level 23.4 mmol/L Anion Gap 14.2 Blood Urea Nitrogen 12 mg/dL Creatinine 0.87 mg/dL Estimated GFR () 112.4 BUN/Creatinine Ratio 13.0 Glucose Level 105 mg/dL Calcium Level 8.5 mg/dL Total Bilirubin 0.4 mg/dL Aspartate Amino Transf (AST/SGOT) 17 U/L Alanine Aminotransferase (ALT/SGPT) 27 U/L Alkaline Phosphatase 70 U/L Total Protein 6.9 g/dL Albumin 2.9 g/dL Globulin 4.0 Percent Immature Gran (Cell Imm) 0.00 % Vancomycin Level Trough 8.1 ug/mL Current Medications Medications (Trade) Dose Ordered Sig/Natalie Route PRN Reason Start Time Stop Time Status Last Admin Dose Admin Ketorolac Tromethamine (Toradol) 30 mg STAT STAT IV 03/25/18 08:58 03/25/18 08:59 DC 03/25/18 09:01 Ketorolac Tromethamine (Toradol) 30 mg STK-MED ONCE .ROUTE 03/25/18 09:00 03/25/18 09:02 DC Vancomycin HCl 1.5 gm/Sodium Chloride 300 ml @ 175 mls/hr OT ONCE IV 03/25/18 10:00 03/25/18 11:42 DC 03/25/18 09:59 Lidocaine HCl (Lidocaine 1% Vial) 200 mg STK-MED ONCE .ROUTE 03/25/18 09:39 03/25/18 09:41 DC Sodium Chloride 250 ml @ ud STK-MED ONCE IV 03/25/18 09:58 03/25/18 10:00 DC Vancomycin HCl 2 ml @ ud STK-MED ONCE .ROUTE 03/25/18 09:59 03/25/18 10:01 DC Vancomycin HCl 1.5 gm/Sodium Chloride 300 ml @ 175 mls/hr Q12HR IV 03/25/18 21:00 03/25/18 21:00 DC Ketorolac Tromethamine (Toradol) 15 mg Q6H PRN IV PAIN 03/25/18 11:00 03/30/18 10:59 03/27/18 05:02 Acetaminophen (Tylenol) 1,000 mg Q6H PRN PO PAIN MILD 03/25/18 12:30 04/24/18 12:29 03/26/18 18:33 Pantoprazole Sodium (Protonix) 40 mg DAILY PO 03/26/18 09:00 04/25/18 08:59 03/26/18 09:22 Acetaminophen/ Hydrocodone Bitart ([place] 5mg) 1 ea Q4H PRN PO PAIN 03/25/18 12:30 04/24/18 12:29 03/26/18 07:34 Morphine Sulfate (Morphine Sulfate) 2 mg Q4HR IV 03/25/18 16:00 03/25/18 17:51 DC Vancomycin HCl 1 gm/Sodium Chloride 250 ml @ 175 mls/hr BID IV 03/25/18 21:00 04/24/18 20:59 03/26/18 21:16 Morphine Sulfate (Morphine Sulfate) 2 mg Q4H PRN IV PAIN 03/25/18 18:00 04/24/18 17:59 Enoxaparin Sodium (Lovenox) 40 mg Q24HRS SQ 03/26/18 09:30 04/25/18 09:29 03/26/18 10:50 Cefepime HCl 1 gm/ Sodium Chloride 100 ml @ 100 mls/hr Q8HR IV 03/26/18 14:00 04/25/18 13:59 03/27/18 06:49 Levothyroxine Sodium (Levothyroxine Sodium) 25 mcg ACB PO 03/27/18 06:30 04/26/18 06:29 03/27/18 05:29 Lisinopril (Zestril) 5 mg DAILY PO 03/27/18 09:00 04/26/18 08:59 General: Alert, Oriented X3 HEENT: Atraumatic, PERRLA Neck: Supple, No JVD Lungs: Clear to auscultation, Normal air movement Heart: Regular rate, Normal S1, Normal S2 Abdomen: Normal bowel sounds, Soft, No tenderness Extremities: Other (left upper extremity cellulitis wrapped in Oumar bandage) Skin: No rashes, No breakdown All Results(Lab/Rad) PATIENT NAME: ALBERTO BELL MR#: [id number] : 1965 LOCATION: MS ROOM#: 313 BED: A SEX: M AGE: 52 SERVICE DATE: 03/25/18 0846 ORDERING PHYSICIAN: ESTEVAN BETHEA DO RAD#: [id number] ACCESSION NUMBER(s): [id number] PROCEDURE: CT LT UPPER EXTREM W IV EXAM DATE: 03/26/18842 cc: BRIANDA COPELAND MD; ESTEVAN BETHEA DO / CC: BRIANDA COPELAND MD; ESTEVAN BETHEA DO PROCEDURE:CT UPPER EXTREMITY-LT W/CONTRAST COMPARISON:[facility], , XRAY ELBOW 2VWS-LT, 03/25/2018, 08:33 AM. INDICATIONS:Cellulitis lt arm, swelling, redness, warmth to extremity TECHNIQUE:After obtaining the patient's consent, multi-planar CT images of the left elbow were created with non-ionic intravenous contrast. Sagittal and coronal reconstructions were obtained. The study was reviewed on soft tissue and bone windows. FINDINGS: BONES:The visualized portions of the left humerus, the proximal left radius and the ulna show no fracture or cortical destruction. JOINTS:No joint effusion or loose bodies are seen. SOFT TISSUES:Extensive infiltration of the subcutaneous fat involving the distal left humerus and the proximal left radius and the ulna consistent with extensive cellulitis. No focal fluid collection is seen to suggest an abscess. No compartment syndrome is identified. OTHER:Negative. CONCLUSION:Extensive cellulitis of the subcutaneous fat of the distal left humerus and the proximal left radius and the ulna. No fracture or cortical destruction is seen. No evidence for acute osteomyelitis. No joint effusion within the left elbow. Assessment/Plan Assessment/Plan Plan ASSESSMENT: Left forearm abscess History of hypertension History of hypothyroidism History of hyperlipidemia PLAN: Cont vancomycin. Pharmacy to dose continue cefepime. CT scan of the left upper extremity negative for abscess Blood culture so far negative. Cont Tylenol alternating with Mophine. Blood pressures monitored appear within normal limits TSH is 1.291; Total cholesterol is 158, LDL 74, HDL 74, and triglycerides 46; Ur drug screen wnl Continue lisinopril 5 mg daily. Continue levothyroxine 25 g daily GI prophylaxis. Cont DVT prophylaxis. LUIS E CHUA DO Mar 27, 2018 09:44
[2018-03-27 09:45] VITALS: BP 155/88
--- NOTE | 2018-03-27 14:00 | NUR ---
DRESSING ON LEFT UPPER EXTREMITY CHANGED AT THIS TIME.
[2018-03-27 16:37] VITALS: BP 173/105
--- NOTE | 2018-03-27 19:06 | NUR ---
REPORT REPORT GIVEN TO ONCOMING SHIFT, RELINQUISHED CARE FOR PATIENT AT THIS TIME.
[2018-03-27 20:33] VITALS: BP 163/94
--- NOTE | 2018-03-27 20:42 | PNH ---
DATE: SUBJECTIVE: A 55-year-old male, in no acute distress, sitting in his room. He reports he has more swelling in his hand today, but he notices arm has improved, wrist pain has improved. He is tolerating some diet. OBJECTIVE: VITAL SIGNS: Last temperature was 98.3, pulse 100, respiratory rate of 18, blood pressure 155/88. EXTREMITIES: Left arm, the erythema has improved and the swelling has improved. There is some swelling in the dorsum of the hand that is distal to the Oumar wrap he has on his arm. LABORATORY DATA: Today show white count 8.0, hemoglobin 11.5, platelet count 290. Chemistry shows BUN of 12, creatinine 0.87. Albumin is decreased to 2.9. ASSESSMENT: 1. Left arm cellulitis. 2. History of tobacco use. 3. Hypoalbuminemia. 4. Anemia. PLAN: 1. The patient is seen and examined. Chart is reviewed. 2. The patient is advised regarding his need to discontinue tobacco use. 3. He should follow up as an outpatient regarding anemia with his PCP or he can follow up with me. Alirio Villarreal DO DR: MARK/jeanie JOB# [id number] CC: Kei Lauren DO
[2018-03-27] MEDS: NORCO 5MG PO PRN (21:54)
[2018-03-28 00:28] VITALS: BP 155/85
[2018-03-28 05:00] VITALS: BP 148/93
[2018-03-28] MEDS: MAXIPIME 1 GM in NS 100ML 100 ML IV SCH ×3 (06:00→21:57)
[2018-03-28] MEDS: LEVOTHYROXINE SODIUM PO SCH (06:19)
[2018-03-28] MEDS: NORCO 5MG PO PRN ×2 (06:20→16:23)
--- NOTE | 2018-03-28 06:45 | NUR ---
REPORT RECEIVED REPORT, ASSUMED CARE FOR PATIENT AT THIS TIME.
[2018-03-28] MEDS ORDERED: NS 250ML 250 ML IV ONE (08:45)
[2018-03-28] MEDS ORDERED: NICOTINE 21MG PATCH TD SCH (09:00)
--- NOTE | 2018-03-28 09:23 | PRM.PN ---
Subjective Subjective Date: Mar 28, 2018 Time: 09:16 Subjective Patient's wound was unwrapped from SEGUNDO wrap yesterday. Today it looks much better. It is hook and eye attacher and improving. The patient agrees so. He denies any fever. Wound culture is growing gram-positive cocci. Further speciation pending. Objective Vitals and I/O Vital Sign - Last 24 Hours 03/27/18 03/27/18 03/27/18 03/27/18 09:44 09:45 09:46 16:37 Temp 98.3 98.6 98.3 98.6 Pulse 100 86 Resp 18 18 B/P (MAP) 150/99 155/88 (110) 173/105 (127) Pulse Ox 96 99 O2 Delivery Room Air Room Air Room Air 03/27/18 03/27/18 03/27/18 03/28/18 17:30 20:33 22:22 00:28 Temp 98.4 98.5 98.4 98.5 Pulse 85 55 Resp 18 18 B/P (MAP) 163/94 (117) 155/85 (108) Pulse Ox 99 94 O2 Delivery Room Air Room Air Room Air Room Air 03/28/18 05:00 Temp 98.2 98.2 Pulse 86 Resp 18 B/P (MAP) 148/93 (111) Pulse Ox 97 O2 Delivery Room Air Intake and Output 03/27/18 03/27/18 03/28/18 15:00 23:00 07:00 Intake Total 140 ml 711 ml Output Total 600 ml 600 ml 450 ml Balance -460 ml 111 ml -450 ml Current Medications Medications (Trade) Dose Ordered Sig/Natalie Route PRN Reason Start Time Stop Time Status Last Admin Dose Admin Ketorolac Tromethamine (Toradol) 30 mg STAT STAT IV 03/25/18 08:58 03/25/18 08:59 DC 03/25/18 09:01 Ketorolac Tromethamine (Toradol) 30 mg STK-MED ONCE .ROUTE 03/25/18 09:00 03/25/18 09:02 DC Vancomycin HCl 1.5 gm/Sodium Chloride 300 ml @ 175 mls/hr OT ONCE IV 03/25/18 10:00 03/25/18 11:42 DC 03/25/18 09:59 Lidocaine HCl (Lidocaine 1% Vial) 200 mg STK-MED ONCE .ROUTE 03/25/18 09:39 03/25/18 09:41 DC Sodium Chloride 250 ml @ ud STK-MED ONCE IV 03/25/18 09:58 03/25/18 10:00 DC Vancomycin HCl 2 ml @ STK-MED ONCE .ROUTE 03/25/18 09:59 03/25/18 10:01 DC Vancomycin HCl 1.5 gm/Sodium Chloride 300 ml @ 175 mls/hr Q12HR IV 03/25/18 21:00 03/25/18 21:00 DC Ketorolac Tromethamine (Toradol) 15 mg Q6H PRN IV PAIN 03/25/18 11:00 03/30/18 10:59 03/27/18 17:17 Acetaminophen (Tylenol) 1,000 mg Q6H PRN PO PAIN MILD 03/25/18 12:30 04/24/18 12:29 03/26/18 18:33 Pantoprazole Sodium (Protonix) 40 mg DAILY PO 03/26/18 09:00 04/25/18 08:59 03/27/18 09:44 Acetaminophen/ Hydrocodone Bitart ([place] 5mg) 1 ea Q4H PRN PO PAIN 03/25/18 12:30 04/24/18 12:29 03/28/18 06:20 Morphine Sulfate (Morphine Sulfate) 2 mg Q4HR IV 03/25/18 16:00 03/25/18 17:51 DC Vancomycin HCl 1 gm/Sodium Chloride 250 ml @ 175 mls/hr BID IV 03/25/18 21:00 04/24/18 20:59 03/27/18 21:08 Morphine Sulfate (Morphine Sulfate) 2 mg Q4H PRN IV PAIN 03/25/18 18:00 04/24/18 17:59 Enoxaparin Sodium (Lovenox) 40 mg Q24HRS SQ 03/26/18 09:30 04/25/18 09:29 03/27/18 09:44 Cefepime HCl 1 gm/ Sodium Chloride 100 ml @ 100 mls/hr Q8HR IV 03/26/18 14:00 04/25/18 13:59 03/28/18 06:00 Levothyroxine Sodium (Levothyroxine Sodium) 25 mcg ACB PO 03/27/18 06:30 04/26/18 06:29 03/28/18 06:19 Lisinopril (Zestril) 5 mg DAILY PO 03/27/18 09:00 04/26/18 08:59 03/27/18 09:44 Nicotine (Nicotine 21mg Patch) 1 each DAILY TD 03/28/18 09:00 04/27/18 08:59 UNV General: Alert, Oriented X3 HEENT: Atraumatic, PERRLA Neck: Supple, No JVD Lungs: Clear to auscultation, Normal air movement Heart: Regular rate, Normal S1 Abdomen: Normal bowel sounds, Soft Extremities: Other (left forearm cellulitis much improved today after starting cefepime.) Skin: No rashes, No breakdown Neuro: Normal speech, Cranial nerves 3-12 NL Procedures LAB FINAL SITE ID: PRM RUN DATE: 03/27/18 [facility] CTR LAB *LIVE* PAGE 1 RUN TIME: 1810 Specimen Inquiry PATIENT: ALBERTO BELL ACCT: [id number] LOC: U : [id number] AGE/SX: 52/M ROOM: [facility] REG : 03/25/[address]: LUIS E CHUA DO : 1965 BED: A DIS : STATUS: ADM Johnny TLOC: SPEC #: [id number] BONNIE: 03/26/18-1143 STATUS: RES REQ #: [id number] RECD: 03/26/18-[address] [facility] [address]: ESTEVAN BETHEA DO SOURCE: ABSCESS ENTR: 03/26/18-[address]: LUIS E [facility]UA [facility] ORDERED: WC & GS Procedure Result GRAM STAIN Final WHITE BLOOD CELLS RARE GRAM POSITIVE COCCI FEW EPITHELIAL CELLS FEW WOUND CULTURE Preliminary PRELIMINARY REPORT GRAM POSITIVE COCCI STAPH LIKE LARGE NUMBERS ID AND SENSITIVITY TO FOLLOW Assessment/Plan Assessment/Plan Plan ASSESSMENT: Left forearm abscess: improving History of hypertension History of hypothyroidism History of hyperlipidemia PLAN: Cont vancomycin.and cefepime. CT scan of the left upper extremity negative for abscess Blood culture G(+) cocci. Cont Tylenol alternating with Mophine. Blood pressures monitored appear within normal limits TSH is 1.291; Total cholesterol is 158, LDL 74, HDL 74, and triglycerides 46; Ur drug screen wnl Continue lisinopril 5 mg daily. Continue levothyroxine 25 g daily counselled to stop smoking GI prophylaxis. Cont DVT prophylaxis. if continues to improve, consider discharge tomorrow on Augmentin and Cipro LUIS E CHUA DO Mar 28, 2018 09:23
[2018-03-28] MEDS: PROTONIX PO SCH (09:26)
[2018-03-28] MEDS: ZESTRIL PO SCH (09:26)
[2018-03-28] MEDS: VANCOMYCIN HCL 1 GM in NS 250ML 250 ML IV SCH ×2 (09:26→20:54)
[2018-03-28] MEDS: LOVENOX SQ SCH (09:30)
--- NOTE | 2018-03-28 18:32 | PNH ---
DATE: SUBJECTIVE: A 52-year-old male in no acute distress, seen in his room. He has been tolerating diet. OBJECTIVE: VITAL SIGNS: Last temperature is 98.2, pulse 86, respiratory rate 18, blood pressure 148/93. EXTREMITIES: Left arm shows good motor activity. He has noticeably decreased erythema and swelling around the site of previous cellulitis. The packing was removed. There is minimal fibrinous drainage noted. There is minimal purulent drainage noted. There is some granulation of the wound bed. His cultures pending show gram-positive cocci that are Staph like in large numbers. Final culture is still pending. ASSESSMENT: 1. Left arm cellulitis with abscess. 2. Probable Staph infection. PLAN: The patient is seen and examined. Chart was reviewed. His dressing is unpacked and removed. He is advised that he can clean it when he showers today, will relay on the nursing service to redress, the wound. He will follow up for outpatient wound care after discharge. Alirio Villarreal DO DR: MARK/jeanie JOB# [id number] CC: Kei MASTERSON
[2018-03-28 20:11] VITALS: BP 164/90
[2018-03-29 00:15] VITALS: BP 158/94
[2018-03-29 04:35] VITALS: BP 148/88
[2018-03-29] MEDS: NORCO 5MG PO PRN (05:56)
[2018-03-29] MEDS: LEVOTHYROXINE SODIUM PO SCH (05:56)
[2018-03-29] MEDS: MAXIPIME 1 GM in NS 100ML 100 ML IV SCH (05:57)
--- NOTE | 2018-03-29 06:40 | NUR ---
REPORT RECEIVED REPORT, ASSUMED CARE FOR PATIENT AT THIS TIME.
[2018-03-29 08:00] VITALS: BP 149/93
--- NOTE | 2018-03-29 08:14 | PRM.PN ---
Subjective Subjective Date: Mar 29, 2018 Time: 08:14 Subjective Patient's wound is growing MRSA sensitive to clindamycin, tetracycline, Bactrim , and moxifloxacin,. We have discussed possible discharge on clindamycin today. 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 We are going to continue IV antibiotic today with clindamycin. Patient is going to be placed on contact isolation. Discharge plan is going to be adopted today against tomorrow. we will also go ahead and discussed this with case management to possibly get him out today if that can be arranged. Objective Vitals and I/O Vital Sign - Last 24 Hours 03/28/18 03/28/18 03/28/18 03/28/18 09:26 15:39 20:11 23:09 Temp 98.3 98.3 Pulse 81 Resp 18 B/P (MAP) 148/93 164/90 (114) Pulse Ox 94 O2 Delivery Room Air Room Air Room Air 03/29/18 03/29/18 00:15 04:35 Temp 98.4 98.3 98.4 98.3 Pulse 75 74 Resp 18 18 B/P (MAP) 158/94 (115) 148/88 (108) Pulse Ox 96 96 O2 Delivery Room Air Room Air Intake and Output 03/28/18 03/28/18 03/29/18 15:00 23:00 07:00 Output Total 400 ml Balance -400 ml Current Medications Medications (Trade) Dose Ordered Sig/Natalie Route PRN Reason Start Time Stop Time Status Last Admin Dose Admin Ketorolac Tromethamine (Toradol) 30 mg STAT STAT IV 03/25/18 08:58 03/25/18 08:59 DC 03/25/18 09:01 Ketorolac Tromethamine (Toradol) 30 mg STK-MED ONCE .ROUTE 03/25/18 09:00 03/25/18 09:02 DC Vancomycin HCl 1.5 gm/Sodium Chloride 300 ml @ 175 mls/hr OT ONCE IV 03/25/18 10:00 03/25/18 11:42 DC 03/25/18 09:59 Lidocaine HCl (Lidocaine 1% Vial) 200 mg STK-MED ONCE .ROUTE 03/25/18 09:39 03/25/18 09:41 DC Sodium Chloride 250 ml @ ud STK-MED ONCE IV 03/25/18 09:58 03/25/18 10:00 DC Vancomycin HCl 2 ml @ STK-MED ONCE .ROUTE 03/25/18 09:59 03/25/18 10:01 DC Vancomycin HCl 1.5 gm/Sodium Chloride 300 ml @ 175 mls/hr Q12HR IV 03/25/18 21:00 03/25/18 21:00 DC Ketorolac Tromethamine (Toradol) 15 mg Q6H PRN IV PAIN 03/25/18 11:00 03/30/18 10:59 03/27/18 17:17 Acetaminophen (Tylenol) 1,000 mg Q6H PRN PO PAIN MILD 03/25/18 12:30 04/24/18 12:29 03/26/18 18:33 Pantoprazole Sodium (Protonix) 40 mg DAILY PO 03/26/18 09:00 04/25/18 08:59 03/28/18 09:26 Acetaminophen/ Hydrocodone Bitart ([place] 5mg) 1 ea Q4H PRN PO PAIN 03/25/18 12:30 04/24/18 12:29 03/29/18 05:56 Morphine Sulfate (Morphine Sulfate) 2 mg Q4HR IV 03/25/18 16:00 03/25/18 17:51 DC Vancomycin HCl 1 gm/Sodium Chloride 250 ml @ 175 mls/hr BID IV 03/25/18 21:00 04/24/18 20:59 03/28/18 20:54 Morphine Sulfate (Morphine Sulfate) 2 mg Q4H PRN IV PAIN 03/25/18 18:00 04/24/18 17:59 Enoxaparin Sodium (Lovenox) 40 mg Q24HRS SQ 03/26/18 09:30 04/25/18 09:29 03/28/18 09:30 Cefepime HCl 1 gm/ Sodium Chloride 100 ml @ 100 mls/hr Q8HR IV 03/26/18 14:00 04/25/18 13:59 03/29/18 05:57 Levothyroxine Sodium (Levothyroxine Sodium) 25 mcg ACB PO 03/27/18 06:30 04/26/18 06:29 03/29/18 05:56 Lisinopril (Zestril) 5 mg DAILY PO 03/27/18 09:00 04/26/18 08:59 03/28/18 09:26 Nicotine (Nicotine 21mg Patch) 1 each DAILY TD 03/28/18 09:00 04/27/18 08:59 UNV General: Alert, Oriented X3 HEENT: Atraumatic, PERRLA Neck: Supple, No JVD Lungs: Clear to auscultation, Normal air movement Heart: Regular rate, Normal S1 Abdomen: Normal bowel sounds, Soft, No tenderness Extremities: Other (swelling and redness has improved on this left elbow wound. ) Skin: No rashes, No breakdown Neuro: Normal gait, Normal speech, Cranial nerves 3-12 NL Psych/Mental Status: Mental status NL, Mood NL All Results(Lab/Rad) LAB FINAL SITE ID: PRM RUN DATE: 03/28/18 [facility] LAB *LIVE* PAGE 1 RUN TIME: 1519 Specimen Inquiry PATIENT: ALBERTO BELL ACCT: [id number] LOC: MS U : [id number] AGE/SX: 52/M ROOM: 313 REG : 03/25/[address]: LUIS E CHUA DO : 1965 BED: A DIS : STATUS: ADM IN TLOC: SPEC #: [id number] BONNIE: 03/26/18 STATUS: GRAYSON REZbigniew #: [id number] RECD: 03/26/[address] [facility] [address]: ESTEVAN BETHEA DO SOURCE: ABSCESS ENTR: 03/26/18-[address] [facility] [address]: LUIS E CHUA DO [facility]UN[facility] ORDERED: WC & GS Procedure Result GRAM STAIN Final WHITE BLOOD CELLS RARE GRAM POSITIVE COCCI FEW EPITHELIAL CELLS FEW WOUND CULTURE Final Organism 1 MRSA PRELIMINARY REPORT GRAM POSITIVE COCCI STAPH LIKE LARGE NUMBERS ID AND SENSITIVITY TO FOLLOW FINAL REPORT As of 03/28/18 151: Positive culture for METH RESISTANT STAPH AUREUS and patient is not on any antibiotic therapy. MRSA M.I.C. RX --------- --- * AMOXACILLIN/CLAVULANATE >4/2 R * AMPICILLIN >8 R * AMPICILLIN/SULBACTAM 16/8 R * CEFTRIAXONE >32 R * CIPROFLOXACIN >2 R * CLINDAMYCIN <=0.5 S * ERYTHROMYCIN >4 R * GENTAMICIN <=4 S * LEVOFLOXACIN >4 R * MOXIFLOXACIN S * OXACILLIN >2 R * PENICILLIN >8 R * RIFAMPIN <=1 S * TETRACYCLINE <=4 S * TRIMETHOPRIM/SULFAMETHOXAZOLE <=0.5/9.5 S * VANCOMYCIN 2 S END OF REPORT Assessment/Plan Assessment/Plan Assessment/Plan ASSESSMENT: Left forearm abscess: improving MRSA in wound Hypertension History of hypothyroidism History of hyperlipidemia PLAN: DCont vancomycin.and cefepime. start patient on clindamycin IV today CT scan of the left upper extremity negative for abscess Blood culture MRSA Cont Tylenol alternating with Mophine. Blood pressures monitored appear elevated today. We'll increase SEGUNDO inhibitor dose. TSH is 1.291; Total cholesterol is 158, LDL 74, HDL 74, and triglycerides 46; Ur drug screen wnl increase lisinopril from 5-10 mg daily. Continue levothyroxine 25 g daily counselled to stop smoking GI prophylaxis. Cont DVT prophylaxis. LUIS E CHUA DO Mar 29, 2018 08:14
--- NOTE | 2018-03-29 08:28 | PRM.DC ---
Discharge Summary Date of Discharge: Mar 29, 2018 Time of Request to Discharge: 10:47 Additional Comments History of Present Illness 52-year-old male with history of hypertension, hypothyroidism, hyperlipidemia but not on any medications, and a poor historian too; who presented to the ER today with a two-week history of left arm swelling and pain. He was found to have an abscess in his left forearm posteriorly. The patient had an incision and drainage done in the ER and was transferred to the hospitalist service for IV antibiotics. He received 1 dose of vancomycin in the ER. He does not remember how it all started. He said he went to bed about 2 weeks ago, and woke up with this small pimple on his left arm that seems to be a spider bite. Over the course of 2 weeks, it has progressed to an enlarged abscess with redness. He said he used to wrap it with an Oumar wrap but he was not getting better. Patient is a poor historian and keeps referring to the fact that he was in [place] [facility] until recently. HOSP COURSE: Patient was admitted at that time to general medical floor and started on vancomycin initially. By the following morning, his cellulitis and swelling had increased in size. Denies surgery was consulted and the patient was seen by Dr. Villarreal. The CT scan was obtained of the left lower left back left upper extremity and steel did not show any abscess innings. Gram-negative coverage was admitted informal IV cefepime time. Start patient started to improve by the following day. Wound cultures came back MRSA presence sensitive to clindamycin, vancomycin, Bactrim, and a couple of other antibiotics. This was discussed with the patient but he does not have means of getting his antibiotics today. Case management has been able to procure po clindamycin for today and he will be discharged on by mouth clindamycin. He is expected to follow-up with a new PCP and has been strongly advised to do so for several reasons: He needs follow-up regarding his left arm MRSA cellulitis, and he needs follow-up regarding his history of hypertension and hypothyroidism for which he has been reinitiated with his home medications. He verbalized understanding and agrees to plan. Exam/Vitals Current Medications Medications (Trade) Dose Ordered Sig/Natalie Route PRN Reason Start Time Stop Time Status Last Admin Dose Admin Ketorolac Tromethamine (Toradol) 30 mg STAT STAT IV 03/25/18 08:58 03/25/18 08:59 DC 03/25/18 09:01 Ketorolac Tromethamine (Toradol) 30 mg STK-MED ONCE .ROUTE 03/25/18 09:00 03/25/18 09:02 DC Vancomycin HCl 1.5 gm/Sodium Chloride 300 ml @ 175 mls/hr OT ONCE IV 03/25/18 10:00 03/25/18 11:42 DC 03/25/18 09:59 Lidocaine HCl (Lidocaine 1% Vial) 200 mg STK-MED ONCE .ROUTE 03/25/18 09:39 03/25/18 09:41 DC Sodium Chloride 250 ml @ ud STK-MED ONCE IV 03/25/18 09:58 03/25/18 10:00 DC Vancomycin HCl 2 ml @ ud STK-MED ONCE .ROUTE 03/25/18 09:59 03/25/18 10:01 DC Vancomycin HCl 1.5 gm/Sodium Chloride 300 ml @ 175 mls/hr Q12HR IV 03/25/18 21:00 03/25/18 21:00 DC Ketorolac Tromethamine (Toradol) 15 mg Q6H PRN IV PAIN 03/25/18 11:00 03/30/18 10:59 03/27/18 17:17 Acetaminophen (Tylenol) 1,000 mg Q6H PRN PO PAIN MILD 03/25/18 12:30 04/24/18 12:29 03/26/18 18:33 Pantoprazole Sodium (Protonix) 40 mg DAILY PO 03/26/18 09:00 04/25/18 08:59 03/28/18 09:26 Acetaminophen/ Hydrocodone Bitart ([place] 5mg) 1 ea Q4H PRN PO PAIN 03/25/18 12:30 04/24/18 12:29 03/29/18 05:56 Morphine Sulfate (Morphine Sulfate) 2 mg Q4HR IV 03/25/18 16:00 03/25/18 17:51 DC Vancomycin HCl 1 gm/Sodium Chloride 250 ml @ 175 mls/hr BID IV 03/25/18 21:00 04/24/18 20:59 03/28/18 20:54 Morphine Sulfate (Morphine Sulfate) 2 mg Q4H PRN IV PAIN 03/25/18 18:00 04/24/18 17:59 Enoxaparin Sodium (Lovenox) 40 mg Q24HRS SQ 03/26/18 09:30 04/25/18 09:29 03/28/18 09:30 Cefepime HCl 1 gm/ Sodium Chloride 100 ml @ 100 mls/hr Q8HR IV 03/26/18 14:00 04/25/18 13:59 03/29/18 05:57 Levothyroxine Sodium (Levothyroxine Sodium) 25 mcg ACB PO 03/27/18 06:30 04/26/18 06:29 03/29/18 05:56 Lisinopril (Zestril) 5 mg DAILY PO 03/27/18 09:00 04/26/18 08:59 03/28/18 09:26 Nicotine (Nicotine 21mg Patch) 1 each DAILY TD 03/28/18 09:00 04/27/18 08:59 UNV General: Alert, Oriented X3 HEENT: Atraumatic, PERRLA Neck: Supple, No thyromegaly Lungs: Clear to auscultation, Normal air movement Heart: Regular rate, Normal S1, Normal S2 Abdomen: Normal bowel sounds, No tenderness Extremities: Other (upper extremity swelling and redness improved.) Skin: No rashes, No breakdown Neuro: Normal gait, Normal speech, Cranial nerves 3-12 NL Results(Labs/Rad) LAB FINAL SITE ID: PRM RUN DATE: 03/28/18 [facility] *LIVE* PAGE 1 RUN TIME: 1519 Specimen Inquiry PATIENT: ALBERTO BELL ACCT: [id number] LOC: U : [id number] AGE/SX: 52/M ROOM: 313 REG : 03/25/[address]: LUIS E CHUA DO : 1965 BED: A DIS : STATUS: ADM IN TLOC: SPEC #: [id number] BONNIE: 03/26/18 STATUS: COMP REQ #: [id number] RECD: 03/26/[address]: ESTEVAN VILLARREAL DO SOURCE: ABSCESS ENTR: 03/26/1812[address] OT DR: LUIS E CHUA DO SPDESC: PCP,UNKNOWN ORDERED: WC & GS Procedure Result GRAM STAIN Final WHITE BLOOD CELLS RARE GRAM POSITIVE COCCI FEW EPITHELIAL CELLS FEW WOUND CULTURE Final Organism 1 MRSA PRELIMINARY REPORT GRAM POSITIVE COCCI STAPH LIKE LARGE NUMBERS ID AND SENSITIVITY TO FOLLOW FINAL REPORT As of 03/28/18 1519: Positive culture for METH RESISTANT STAPH AUREUS and patient is not on any antibiotic therapy. MRSA M.I.C. RX --------- --- * AMOXACILLIN/CLAVULANATE >4/2 R * AMPICILLIN >8 R * AMPICILLIN/SULBACTAM 16/8 R * CEFTRIAXONE >32 R * CIPROFLOXACIN >2 R * CLINDAMYCIN <=0.5 S * ERYTHROMYCIN >4 R * GENTAMICIN <=4 S * LEVOFLOXACIN >4 R * MOXIFLOXACIN S * OXACILLIN >2 R * PENICILLIN >8 R * RIFAMPIN <=1 S * TETRACYCLINE <=4 S * TRIMETHOPRIM/SULFAMETHOXAZOLE <=0.5/9.5 S * VANCOMYCIN 2 S END OF REPORT Sepsis Evaluation @ Discharge 03/29/18 08:00 Plan Assessment DISCHARGE DX: Left forearm abscess: improving MRSA in wound Hypertension History of hypothyroidism History of hyperlipidemia Discharge Date: Mar 29, 2018 Discharge Disposition: Stable Plan Patient to be discharged home on 03/29/2018. He is going to go with by mouth clindamycin 600 mg 3 times a day for 2 weeks He is going to continue 10 mg of lisinopril daily until he sees his PCP in follow-up He is going to continue levothyroxine 25 g daily until he sees his PCP in follow-up He is going to follow-up with wound care after discharge All scripts have been written and will be in patient's chart OBINERO,LUIS E C DO Mar 29, 2018 08:28
[2018-03-29] MEDS ORDERED: ZESTRIL PO SCH (09:00)
[2018-03-29] MEDS: LOVENOX SQ SCH (09:05)
[2018-03-29] MEDS: PROTONIX PO SCH (09:05)
[2018-03-29] MEDS ORDERED: CLIN300C8 PO (10:56)
[2018-03-29] MEDS ORDERED: LISI-414 PO (10:56)
[2018-03-29] MEDS ORDERED: LEVO25TA4 PO (10:56)
[2018-03-29 11:44] VITALS: BP 135/95
--- NOTE | 2018-03-29 12:00 | NUR ---
DISCHARGE PICTURES TAKEN OF WOUND AT THIS TIME. WOUND WAS CLEANSED WITH WOUND CLEANSER, PACKED WITH MAXORB, AND DRESSED WITH KERLIX AND AND SEGUNDO BANDAGE PER ORDERS FROM WOUND CARE NURSE.
[2018-03-29] MEDS ORDERED: CLEOCIN ONE ×2 (12:07→12:48)
--- NOTE | 2018-03-29 12:50 | NUR ---
DISCHARGE UPDATE CM VISITED WITH PHARMACY CONCERNING COST OF CLINDAMYCIN 600MG X 2-3 DOSES. [facility] PHARMACIST STATED IT WOULD BE $5-$10 CHARGE. KEKE WALTER RN VISITED WITH DOMINIC SELLERS RN FOR APPROVAL. AMANDA SPOKE WITH MARTINA MORENO RN, CHARGE NURSE TO CONFIRM APPROVAL FOR CLINDAMYCIN X3 DOSES.
[2018-03-29 13:00] VITALS: BP 135/95
--- NOTE | 2018-03-29 13:08 | NUR ---
PATIENT TAKEN DOWNSTAIRS TO REGISTER AT OUTPATIENT FOR PHYSICAL THERAPY AT THIS TIME.
--- NOTE | 2018-03-29 13:10 | NUR ---
DISCHARGE PATIENT BEING DISCHARGED HOME AT THIS TIME IN STABLE CONDITION. CONTACTED NURSE TO OBTAIN FOLLOW UP APPOINTMENT. IT WILL BE COORDINATED WITH PHYSICAL THERAPY. PATIENT DENIES NEEDING ADDITIONAL RESOURCES AT THIS TIME. RELINQUISHED CARE FOR PATIENT.
[2018-03-29] MEDS ORDERED: CLEOCIN 900 MG-D5W-GALAXY 50 ML IV SCH (14:00)
== END 2018-03-29 13:08 | disposition home or self-care (01) | DRG 918 ==
LOC: ER 08:46 → EDBD 08:46 → MS 10:46 → OBSVTOIN 12:09 → EDPENDDISTM 03-29 13:00
PROVIDERS: ADMIT Internal Medicine; ATTEND Internal Medicine
PROC: 0H9EXZZ Drainage of Left Lower Arm Skin, External Approach (ICD-10-PCS; principal; 2018-03-25)
DX: T63.301A Toxic effect of unspecified spider venom, accidental (unintentional), initial encounter (principal); L03.114 Cellulitis of left upper limb; L02.414 Cutaneous abscess of left upper limb; B95.62 Methicillin resistant Staphylococcus aureus infection as the cause of diseases classified elsewhere; D64.9 Anemia, unspecified; E03.9 Hypothyroidism, unspecified; E78.5 Hyperlipidemia, unspecified; I10 Essential (primary) hypertension; Z78.9 Other specified health status; Z87.891 Personal history of nicotine dependence; Z90.49 Acquired absence of other specified parts of digestive tract; Y92.098 Other place in other non-institutional residence as the place of occurrence of the external cause
CPT/HCPCS: 36415; 73201; 80053; 80061; 80202; 80307; 84443; 84550; 85025; 85651; 86140; 87040; 87070; 87077; 87186; 96365; 96366; 96367; 96372; 96375; 96376; 99284; 99285; G0378; J1650; J1885; J2001; J7040; J7050; Q9965; 73070-LT; A9270; J0692; J3490